=== PATIENT | female | born 1985 | race Two or more races ===

== ENCOUNTER 2023-04-15 02:26 | Emergency (ER) | payer OTHER ==
[~2023-04-15] VITALS: Ht 170.2 cm; Wt 68.0 kg
[2023-04-15] MEDS ORDERED: FAMCICLOVIR500 MG PO (04:13)
[2023-04-15] MEDS ORDERED: DICLOFENAC SODI75 MG PO (04:13)
== END 2023-04-15 05:30 | disposition home or self-care (01) ==
LOC: ER 02:27
DX: B02.9 Zoster without complications (principal)